=== PATIENT | female | born 1975 | race Caucasian/White ===

== ENCOUNTER → 2022-09-06 14:10 | Outpatient (CLI) | payer OTHER, SELFPAY ==
--- NOTE | ~2022-09-06 | XR_ITS ---
EXAMINATION: XR sacrum coccyx min 2V INDICATION: Pain after fall TECHNIQUE: Three views of the sacrum and coccyx are obtained. COMPARISON: None available FINDINGS: Bone alignment is normal. There is no fracture. There is mild lower lumbar spondylosis. An IUD is noted. There is mild osteoarthritis of the hips. IMPRESSION: 1. No acute osseous abnormality. Reviewed, dictated and finalized at location B. [employer]
== END ==
PROVIDERS: PCP Family Medicine Adolescent Medicine; Visit Provider Family Medicine Adolescent Medicine
DX: M53.3 Sacrococcygeal disorders, not elsewhere classified (principal)
CPT/HCPCS: 72220

== ENCOUNTER 2024-06-27 15:24 | Outpatient (CLI) | payer OTHER, SELFPAY ==
--- NOTE | ~2024-06-27 | CT_ITS ---
CLINICAL INDICATION: Right-sided abdominal pain COMPARISON: None. TECHNIQUE: Multiple contiguous axial images of the abdomen and pelvis were performed without the admi nistration of intravenous contrast The dose-length product (DLP) was 1044.74 mGy-cm. Automated exposure control and iterative reconstruction technique were employed. FINDINGS/OBSERVATIONS: Visualized lower thorax: Calcified granuloma within the right lung base. The remainder of the bilateral lung bases are clear. The heart is enlarged, without pericardial effusion. Small hiatal hernia is present. Liver: The liver demonstrates homogeneous decreased attenuation and is enlarged measuring 20 cm in longitudi nal dimension. Gallbladder and biliary system: Surgically absent. Pancreas: Limited evaluation of the pancreas secondary to the lack of intravenous contrast. Spleen: Punctate calcifications identified within the splenic parenchyma, suggesting prior granulomatous dise ase. The remainder of the spleen demonstrates otherwise homogeneous attenuation and is not enlarged measur ing 9 cm in longitudinal dimension. Kidneys: The bilateral kidneys are unremarkable, without hydronephrosis or renal calculi. Adrenal glands: Unremarkable. Gastrointestinal tract: Findings within the upper abdomen consistent with patient's gastric sleeve surgery. Significant fecal stasis within the colon. Appendix: Surgically absent. Vasculature: Unremarkable. Lymph nodes: No pathologically enlarged or morphologically suspicious lymph nodes within the retroperitoneum or at the root of the mesentery. Pelvic structures: The bladder is decompressed, and otherwise unremarkable. The uterus is anteverted and anteflexed. Intrauterine device is present. Body wall and musculoskeletal: Small fat-containing umbilical hernia. No significant degenerative disease within the lower thoracic or lumbosacral spine. IMPRESSION: Fatty infiltration of an enlarged liver. Significant fecal stasis within the colon. 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 Reviewed, dictated and finalized at location A. K MATCHER
== END 2024-06-27 15:25 | disposition home or self-care (01) ==
LOC: MICIMG 15:24
PROVIDERS: PCP Family Medicine Adolescent Medicine; Visit Provider Family Medicine Adolescent Medicine
DX: K76.0 Fatty (change of) liver, not elsewhere classified (principal); K56.41 Fecal impaction
CPT/HCPCS: 74176